=== PATIENT | female | born 1935 | race Caucasian/White ===

== ENCOUNTER 2023-04-13 11:13 | Emergency (ER) | payer MEDICARE, OTHER, MEDICAID | END 2023-04-13 12:15 | disposition short-term general hospital (02) | LOC: NAV ERS 11:13 | DX: M79.651 Pain in right thigh (principal); I10 Essential (primary) hypertension; Z86.73 Personal history of transient ischemic attack (TIA), and cerebral infarction without residual deficits; Z79.84 Long term (current) use of oral hypoglycemic drugs; Z79.899 Other long term (current) drug therapy | CPT/HCPCS: 99284 ==